=== PATIENT | male | born 1980 | race Two or more races ===

== ENCOUNTER → 2020-05-21 | Emergency (ER) | payer OTHER ==
[~2020-05-21] VITALS: Ht 172.7 cm; Wt 68.5 kg
[~2020-05-21] MED LIST: CARAFATE1 GM PO; NEXIUM20 M1; NEXIUM20 M1 PO; PEPCID AC20 MG PO; PROTONIX20 MG
== END | disposition home or self-care (01) ==
LOC: ER 22:57
DX: K29.70 Gastritis, unspecified, without bleeding (principal)

== ENCOUNTER 2020-12-25 20:50 | Emergency (ER) | payer OTHER ==
[~2020-12-25] VITALS: Ht 172.7 cm; Wt 68.0 kg
[2020-12-25] MEDS ORDERED: BACTRIM DS TAB1 EACH PO (22:37)
== END 2020-12-25 22:58 | disposition home or self-care (01) ==
LOC: ER 20:50
DX: R31.0 Gross hematuria (principal)

== ENCOUNTER 2021-11-14 10:11 | Outpatient (CLI) | payer OTHER ==
[~2021-11-14 10:11] MED LIST changes: +BACTRIM DS TAB1 EACH PO
== END 2021-11-14 10:16 | disposition home or self-care (01) ==
LOC: LAB 10:11 → EDBD 10:11 → LAB 10:16
PROVIDERS: ATTEND Colon & Rectal Surgery
DX: K57.20 Diverticulitis of large intestine with perforation and abscess without bleeding (principal); K57.32 Diverticulitis of large intestine without perforation or abscess without bleeding; N32.1 Vesicointestinal fistula

== ENCOUNTER 2021-11-17 09:45 | Inpatient (IN) | payer OTHER ==
[~2021-11-17] VITALS: Ht 172.7 cm; Wt 69.9 kg
[2021-11-17] MEDS ORDERED: BENTYL10 MG/1 ML IM (12:24)
[2021-11-17] MEDS ORDERED: BENADRYL25 MG PO (12:24)
[2021-11-17] MEDS ORDERED: ALLERGY RELIEF10 M4 PO (12:24)
[2021-11-27] MEDS ORDERED: CEPHALEXIN500 M1 PO (23:29)
== END 2021-12-12 23:35 | disposition home or self-care (01) | DRG 330 ==
LOC: EDBD 09:45 → SURH 11-22 09:45 → O/R 12-05 07:47 → SURG 12-05 07:47
PROVIDERS: Surgery; ADMIT Colon & Rectal Surgery; ATTEND Colon & Rectal Surgery
PROC: 0TQB4ZZ Repair Bladder, Percutaneous Endoscopic Approach (ICD-10-PCS; 2021-12-05)
PROC: 0WUF47Z Supplement Abdominal Wall with Autologous Tissue Substitute, Percutaneous Endoscopic Approach (ICD-10-PCS; 2021-12-05)
PROC: 0T7D8DZ Dilation of Urethra with Intraluminal Device, Via Natural or Artificial Opening Endoscopic (ICD-10-PCS; 2021-12-05)
PROC: 0DTN4ZZ Resection of Sigmoid Colon, Percutaneous Endoscopic Approach (ICD-10-PCS; principal; 2021-12-05 19:00)
PROC: 0DBP4ZZ Excision of Rectum, Percutaneous Endoscopic Approach (ICD-10-PCS; 2021-12-05 19:00)
DX: K57.20 Diverticulitis of large intestine with perforation and abscess without bleeding (principal); N32.1 Vesicointestinal fistula; Z20.822 Contact with and (suspected) exposure to COVID-19

== ENCOUNTER → 2021-11-27 | Emergency (ER) | payer OTHER ==
[~2021-11-27] VITALS: Ht 152.4 cm; Wt 69.9 kg
[~2021-11-27] MED LIST changes: +ALLERGY RELIEF10 M4 PO; +BENADRYL25 MG PO; +BENTYL10 MG/1 ML IM; +CEPHALEXIN500 M1 PO
== END | disposition home or self-care (01) ==
LOC: ER 21:45
DX: S92.591A Other fracture of right lesser toe(s), initial encounter for closed fracture (principal); X58.XXXA Exposure to other specified factors, initial encounter; Y93.89 Activity, other specified; Y92.9 Unspecified place or not applicable; Y99.9 Unspecified external cause status; Z91.018 Allergy to other foods

== ENCOUNTER 2021-12-05 12:34 | Outpatient (CLI) | payer OTHER | END 2021-12-05 14:17 | disposition home or self-care (01) | LOC: LAB 12:34 | PROVIDERS: ATTEND Colon & Rectal Surgery | DX: Z20.822 Contact with and (suspected) exposure to COVID-19 (principal); Z20.818 Contact with and (suspected) exposure to other bacterial communicable diseases ==